=== PATIENT | male | born 1980 | race Caucasian/White ===

== ENCOUNTER → 2019-08-24 11:50 | Outpatient (CLI) | payer OTHER, SELFPAY ==
--- NOTE | 2019-08-24 11:53 | DI.RAD.S_ITS ---
PROCEDURE: XR CLAVICLE LT INDICATIONS: pain and swelling post fall, r/o fracture/dislocation TECHNIQUE: 2 views of the clavicle were acquired. COMPARISON: [facility], CR, XR SHOULDER LT MIN 2V, 08/24/2019, 12:12. FINDINGS: Bones: Mild widening of the left acromioclavicular joint with slight elevation of the distal clavicle with respect to the acromion is present. No displaced fractures or jaylen dislocations are present. No suspicious osseous lesions are identified. No significant degenerative changes of the chromic clavicular joint are evident. Soft tissues: No suspicious soft tissue calcifications. IMPRESSION: 1. No displaced left clavicle fractures. 2. Possible acromioclavicular joint separation injury. Clinical correlation is recommended. Dictated by: Braeden Osborne M.D. on 08/24/2019 at 12:04 Approved by: Braeden Osborne M.D. on 08/24/2019 at 12:06
--- NOTE | 2019-08-24 11:53 | DI.RAD.S_ITS ---
PROCEDURE: XR SHOULDER LT MIN 2V INDICATIONS: pain and swelling post fall, r/o fracture/dislocation TECHNIQUE: 2 views of the shoulder were acquired. COMPARISON: None. FINDINGS: Bones: No displaced fracture or dislocation is evident. There is slight widening of the left acromioclavicular joint. No suspicious osseous lesions are identified. Soft tissues: No suspicious soft tissue calcifications. IMPRESSION: 1. No acute left shoulder fractures. 2. Widening of the acromial clavicular joint could potentially represent an acromioclavicular joint separation injury and clinical correlation is recommended. Dictated by: Braeden Osborne M.D. on 08/24/2019 at 11:58 Approved by: Braeden Osborne M.D. on 08/24/2019 at 12:00
== END ==
PROVIDERS: Visit Provider Physician Assistant
DX: S49.90XA Unspecified injury of shoulder and upper arm, unspecified arm, initial encounter (principal); M25.512 Pain in left shoulder; M25.412 Effusion, left shoulder; W19.XXXA Unspecified fall, initial encounter
CPT/HCPCS: 73000; 73030